=== PATIENT | female | born 1995 | race African-American/Black ===

== ENCOUNTER 2020-11-15 19:19 | Emergency (ER) | payer OTHER ==
[2020-11-15 20:45] LABS: HEMATOCRIT 40.3 % (36.0-47.0); HEMOGLOBIN 13.6 g/dl (12.0-15.5); MEAN CORPUSCULAR HGB CONC 33.7 g/dl (32.0-36.5); MEAN CORPUSCULAR VOLUME 83.1 fl (80.0-96.0); PLATELET COUNT, AUTOMATED 381 10^3/uL (150-450); RED BLOOD COUNT 4.85 10^6/uL (4.00-5.40); WHITE BLOOD COUNT 5.6 10^3/uL (4.0-10.0)
[2020-11-15 21:03] LABS: HCG, SERUM QUALITATIVE NEGATIVE (NEGATIVE)
[2020-11-15 21:10] LABS: ACETAMINOPHEN LEVEL < 2.0 UG/ML (10.0-30.0); ALBUMIN 3.7 GM/DL (3.2-5.2); ALT/SGPT 27 U/L (12-78); BILIRUBIN,DIRECT 0.1 MG/DL (0.0-0.2); BILIRUBIN,TOTAL 0.3 MG/DL (0.2-1.0); BLOOD UREA NITROGEN 11 MG/DL (7-18); CALCIUM LEVEL 8.8 MG/DL (8.5-10.1); CARBON DIOXIDE LEVEL 24 MEQ/L (21-32); CHLORIDE LEVEL 109 MEQ/L (98-107); CREATININE FOR GFR 0.74 MG/DL (0.55-1.30); ETHYL ALCOHOL (ETHANOL) 0.047 % (0.000-0.010); GLOMERULAR FILTRATION RATE > 60.0 (>60); GLUCOSE, FASTING 88 MG/DL (70-100); POTASSIUM SERUM 4.1 MEQ/L (3.5-5.1); SALICYLATE LEVEL < 1.7 MG/DL (5.0-30.0); SODIUM LEVEL 142 MEQ/L (136-145); THYROID STIMULATING HORMONE 0.558 uIU/ML (0.358-3.740); TOTAL PROTEIN 7.4 GM/DL (6.4-8.2)
[2020-11-16 00:24] LABS: AMPHETAMINES LEVEL URINE NEGATIVE (NEGATIVE); BARBITURATES URINE NEGATIVE (NEGATIVE); BENZODIAZEPINES URINE NEGATIVE (NEGATIVE); CANNABINOIDS URINE NEGATIVE (NEGATIVE); COCAINE METABOLITE URINE NEGATIVE (NEGATIVE); METHADONE URINE NEGATIVE (NEGATIVE); OPIATES URINE NEGATIVE (NEGATIVE); PHENCYCLIDINE URINE NEGATIVE (NEGATIVE)
[2020-11-16 04:08] LABS: RSV AMPLIFICATION NEGATIVE (NEGATIVE)
[2020-11-16 08:54] VITALS: BP 115/59
--- NOTE | 2020-11-16 21:27 | ECGEPIP ---
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
== END 2020-11-16 08:58 ==
LOC: M ED 19:19
DX: F32.9 Major depressive disorder, single episode, unspecified (principal); R45.851 Suicidal ideations; R00.1 Bradycardia, unspecified

== ENCOUNTER 2020-12-26 12:09 | Inpatient (IN) | payer OTHER ==
[~2020-12-26] VITALS: Ht 162.6 cm; Wt 57.2 kg
[2020-12-26] MEDS ORDERED: NS 1,000 ML IV SCH ×2 (12:20→12:30)
[2020-12-26] MEDS ORDERED: PRAZ2CAP (12:38)
[2020-12-26] MEDS ORDERED: TRAZ-252 (12:38)
[2020-12-26] MEDS ORDERED: SERT50TA29 (12:38)
[2020-12-26 12:39] LABS: BASO # 0.1 10^3/uL (0.0-0.2); BASO % 1.4 % (0.0-1.0); EOS % 0.9 % (0.0-3.0); HEMATOCRIT 40.3 % (36.0-47.0); HEMOGLOBIN 13.4 g/dl (12.0-15.5); LYMPH # 1.1 10^3/uL (1.5-5.0); LYMPH % 31.4 % (24.0-44.0); MEAN CORPUSCULAR HGB CONC 33.3 g/dl (32.0-36.5); MEAN CORPUSCULAR VOLUME 84.3 fl (80.0-96.0); MONO # 0.4 10^3/uL (0.0-0.8); MONO % 11.2 % (2.0-8.0); NEUTROPHILS # 1.9 10^3/uL (1.5-8.5); NEUTROPHILS % 54.8 % (36.0-66.0); PLATELET COUNT, AUTOMATED 285 10^3/uL (150-450); RED BLOOD COUNT 4.78 10^6/uL (4.00-5.40); WHITE BLOOD COUNT 3.5 10^3/uL (4.0-10.0)
[2020-12-26 12:56] LABS: HCG, SERUM QUALITATIVE NEGATIVE (NEGATIVE)
[2020-12-26 13:09] LABS: ACETAMINOPHEN LEVEL < 2.0 UG/ML (10.0-30.0); ALT/SGPT 28 U/L (12-78); BILIRUBIN,DIRECT 0.2 MG/DL (0.0-0.2); BILIRUBIN,TOTAL 0.6 MG/DL (0.2-1.0); BLOOD UREA NITROGEN 11 MG/DL (7-18); CALCIUM LEVEL 9.3 MG/DL (8.5-10.1); CARBON DIOXIDE LEVEL 28 MEQ/L (21-32); CHLORIDE LEVEL 106 MEQ/L (98-107); CPK CREATINE PHOSPHOKINASE 163 U/L (26-192); CREATININE FOR GFR 0.69 MG/DL (0.55-1.30); ETHYL ALCOHOL (ETHANOL) 0.003 % (0.000-0.010); GLOMERULAR FILTRATION RATE > 60.0 (>60); GLUCOSE, FASTING 94 MG/DL (70-100); POTASSIUM SERUM 3.8 MEQ/L (3.5-5.1); SALICYLATE LEVEL < 1.7 MG/DL (5.0-30.0); SODIUM LEVEL 139 MEQ/L (136-145); TOTAL PROTEIN 7.7 GM/DL (6.4-8.2)
[2020-12-26 17:53] LABS: AMPHETAMINES LEVEL URINE NEGATIVE (NEGATIVE); BARBITURATES URINE NEGATIVE (NEGATIVE); BENZODIAZEPINES URINE NEGATIVE (NEGATIVE); CANNABINOIDS URINE NEGATIVE (NEGATIVE); COCAINE METABOLITE URINE NEGATIVE (NEGATIVE); METHADONE URINE NEGATIVE (NEGATIVE); OPIATES URINE NEGATIVE (NEGATIVE); PHENCYCLIDINE URINE NEGATIVE (NEGATIVE)
[2020-12-26 19:43] LABS: RSV AMPLIFICATION NEGATIVE (NEGATIVE)
[2020-12-26] MEDS ORDERED: VITMTA PO (20:21)
[2020-12-26] MEDS ORDERED: SERT50TA29 PO (20:21)
[2020-12-26] MEDS ORDERED: TRAZ-186 PO (20:21)
[2020-12-26] MEDS ORDERED: GINK60CA2 PO (20:21)
[2020-12-26] MEDS ORDERED: FISH1000 PO (20:21)
[2020-12-26] MEDS ORDERED: PRAZ2CAP PO (20:21)
[2020-12-26] MEDS ORDERED: HOME MED LIST COMPLETE! XX SCH (20:25)
[2020-12-26] MEDS ORDERED: hydrOXYzine 50 MG TAB PO PRN (20:40)
[2020-12-26] MEDS ORDERED: MOM 30ML SUSPENSION UDC PO PRN (20:40)
[2020-12-26] MEDS ORDERED: traZODone 50 MG TAB PO PRN (20:40)
[2020-12-26] MEDS ORDERED: OLANZapine 5 MG TAB PO PRN (20:40)
[2020-12-26] MEDS ORDERED: ACETAMINOPHEN TAB 650MG DOSE (2X325MG) PO PRN (20:40)
[2020-12-26] MEDS ORDERED: MAALOX 30 ML SUSP *UDC PO PRN (20:40)
[2020-12-26 22:22] VITALS: BP 90/54
--- NOTE | 2020-12-27 04:09 | MHIPNPDOC ---
[facility] Progress Note Progress Note DATE OF SERVICE: 12/27/20 Communicated with PSA patient is to be admitted. Patient presents with intentional overdose and suicidal ideation. Last visit in October. Vital Signs Vital Signs Date Time Temp Pulse Resp B/P (MAP) Pulse Ox O2 Delivery O2 Flow Rate FiO2 12/26/20 22:22 97.7 68 16 90/54 (66) 100 Room Air Laboratory Data 24H Labs Laboratory Tests 2 12/26/20 12:18: Immature Granulocyte % (Auto) 0.3, Neutrophils (%) (Auto) 54.8, Lymphocytes (%) (Auto) 31.4, Monocytes (%) (Auto) 11.2H, Eosinophils (%) (Auto) 0.9, Basophils (%) (Auto) 1.4H, Neutrophils # (Auto) 1.9, Lymphocytes # (Auto) 1.1L, Monocytes # (Auto) 0.4, Eosinophils # (Auto) 0.0, Basophils # (Auto) 0.1, Nucleated Red Blood Cells % (auto) 0.0 12/26/20 12:19: Anion Gap 5L, Glomerular Filtration Rate > 60.0, Calcium Level 9.3, Total B ilirubin 0.6, Direct Bilirubin 0.2, Aspartate Amino Transf (AST/SGOT) 12, Alanine Aminotransferase (ALT/SGPT) 28, Alkaline Phosphatase 50, Total Creatine Kinase 163, Total Protein 7.7, Albumin 4.0, Albumin/Globulin Ratio 1.1L, Thyroid Stimulating Hormone (TSH) 1.330, Human Chorionic Gonadotropin, Qual NEGATIVE, Salicylates Level < 1.7L, Acetaminophen Level < 2.0L, Ethyl Alcohol Level 0.003 12/26/20 16:50: Urine Opiates Screen NEGATIVE, Urine Methadone Screen NEGATIVE, Urine B arbiturates Screen NEGATIVE, Urine Phencyclidine Screen NEGATIVE, Urine Amphetamines Screen NEGATIVE, Urine Benzodiazepines Screen NEGATIVE, Urine Cocaine Metabolite Screen NEGATIVE, Urine Cannabinoids Screen NEGATIVE 12/26/20 18:44: Coronavirus (COVID-19)(PCR) NEGATIVE, Influenza Type A (RT-PCR) NEGATIVE, Influenza Type B (RT-PCR) NEGATIVE, Respiratory Syncytial Virus (PCR) NEGATIVE CBC/BMP Laboratory Tests 12/26/20 12:18 12/26/20 12:19 Current Medications Current Medications Medications (Trade) Dose Ordered Sig/Aubree Route PRN Reason Start Time Stop Time Status Last Admin Dose Admin Acetaminophen (Tylenol Tab) 650 mg Q6HP PRN PO HEADACHE or MILD DISCOMFORT 12/26/20 20:40 Al Hydrox/Mg Hydrox/Simethicone (Mylanta) 30 ml Q4HP PRN PO HEARTBURN/INDIGESTION 12/26/20 20:40 Home Med (Home Med List Complete!) ASDIRECTED XX 12/26/20 20:25 12/26/20 20:26 DC Hydroxyzine HCl (Atarax) 50 mg Q6HP PRN PO ANXIETY/AGITATION 12/26/20 20:40 Magnesium Hydroxide (Milk Of Magnesia) 30 ml DAILYPRN PRN PO CONSTIPATION 12/26/20 20:40 Olanzapine (ZyPREXA) 5 mg Q6HP PRN PO ANXIETY/AGITATION 12/26/20 20:40 Sodium Chloride 1,000 ml @ 100 mls/hr Q10H IV 12/26/20 12:20 12/26/20 22:24 DC 12/26/20 12:30 Sodium Chloride 1,000 ml @ 100 mls/hr Q10H IV 12/26/20 12:30 12/26/20 22:24 DC Trazodone HCl (Desyrel) 50 mg QHSP PRN PO INSOMNIA 12/26/20 20:40 Cancel Allergies Coded Allergies: No Known Allergies (Unverified , 11/15/20) SILAS RUIZ MD Dec 27, 2020 04:09
[2020-12-27 07:40] VITALS: BP 93/60
--- NOTE | 2020-12-27 11:34 | ECGEPIP ---
[facility] - ED Test Date: 2020-12-26 Pat Name: EVANGELINA CRISOSTOMO Department: Room: - Gender: Female [employer]: LR : 1995 Requested By: Nga Acharya Order Number: [id number] Reading MD: Nga Acharya Measurements Intervals [place] Rate: 70 P: 28 [place]: 142 QRS: 77 QRSD: 66 T: 41 QT: 416 QTc: 449 Interpretive Statements Normal sinus rhythm with sinus arrhythmia NSTTW abnormalities increased rate 11/16/20 Electronically Signed on 12-27-2020 11:33:40 EDT by Nga Acharya
--- NOTE | 2020-12-27 11:38 | ECGEPIP ---
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
--- NOTE | 2020-12-27 12:22 | HPEPDOC ---
[facility] Medical History & Physical Date of Admission Dec 26, 2020 Date of Service: Dec 27, 2020 History and Physical CHIEF COMPLAINT: Suicidal ideation HISTORY OF PRESENT ILLNESS: 25-year-old female was brought in by EMS after an attempted intentional overdose. Patient states she tried to overdose on her trazodone, and took approximately thirty 50 mg tablets. She states she vomited a few times after this ingestion. On examination she denies chest pain, headaches, abdominal pain, nausea, vomiting, diarrhea, changes in vision. PAST MEDICAL HISTORY: Denies PAST SURGICAL HISTORY: Denies SOCIAL HISTORY: Not , has a girlfriend, no children. FAMILY HISTORY: Father: Reviewed and noncontributory Mother: Reviewed and noncontributory ALLERGIES: Please see below. REVIEW OF SYSTEMS: Negative except as per HPI HOME MEDICATIONS: Please see below. PHYSICAL EXAMINATION: Vital Signs: reviewed and within normal limits General: NAD, sitting comfortably in chair HEENT: NC/AT, EOMI Neck: supple, no masses Chest: lungs CTA B/L Heart: +S1S2, RRR Abd: soft, NT, ND, +BS Ext: no edema Skin: no rashes MSK: full ROM at large joints Neuro: no gross focal deficits Psych: AAOx3 LABORATORY DATA: See below. MICROBIOLOGY: Please see below. A/P: 25-year-old female with no past medical history admitted for suicidal ideation with intentional trazodone overdose. #Suicidal ideation -Follow as per primary teampsychiatry #History of alcohol abuse -Patient not able to quantify, however states that she quit drinking in September 2020 #Nicotine abuse -Patient not interested in nicotine replacement therapy Thank you for this consultation. Please reconsult as needed. Vital Signs Vital Signs Date Time Temp Pulse Resp B/P (MAP) Pulse Ox O2 Delivery O2 Flow Rate FiO2 12/27/20 08:26 Room Air 12/27/20 07:40 99.2 58 15 93/60 (71) 99 Laboratory Data Labs 24H Laboratory Tests 2 12/26/20 12:18: Immature Granulocyte % (Auto) 0.3, Neutrophils (%) (Auto) 54.8, Lymphocytes (%) (Auto) 31.4, Monocytes (%) (Auto) 11.2H, Eosinophils (%) (Auto) 0.9, Basophils (%) (Auto) 1.4H, Neutrophils # (Auto) 1.9, Lymphocytes # (Auto) 1.1L, Monocytes # (Auto) 0.4, Eosinophils # (Auto) 0.0, Basophils # (Auto) 0.1, Nucleated Red Blood Cells % (auto) 0.0 12/26/20 12:19: Anion Gap 5L, Glomerular Filtration Rate > 60.0, Calcium Level 9.3, Total Bilirubin 0.6, Direct Bilirubin 0.2, Aspartate Amino Transf (AST/SGOT) 12, Alanine Aminotransferase (ALT/SGPT) 28, Alkaline Phosphatase 50, Total Creatine Kinase 163, Total Protein 7.7, Albumin 4.0, Albumin/Globulin Ratio 1.1L, Thyroid Stimulating Hormone (TSH) 1.330, Human Chorionic Gonadotropin, Qual NEGATIVE, Salicylates Level < 1.7L, Acetaminophen Level < 2.0L, Ethyl Alcohol Level 0.003 12/26/20 16:50: Urine Opiates Screen NEGATIVE, Urine Methadone Screen NEGATIVE, Urine Barbiturates Screen NEGATIVE, Urine Phencyclidine Screen NEGATIVE, Urine Amphetamines Screen NEGATIVE, Urine Benzodiazepines Screen NEGATIVE, Urine Cocaine Metabolite Screen NEGATIVE, Urine Cannabinoids Screen NEGATIVE 12/26/20 18:44: Coronavirus (COVID-19)(PCR) NEGATIVE, Influenza Type A (RT-PCR) NEGATIVE, Influenza Type B (RT-PCR) NEGATIVE, Respiratory Syncytial Virus (PCR) NEGATIVE CBC/BMP Laboratory Tests 12/26/20 12:18 12/26/20 12:19 Home Medications Scheduled Ginkgo Biloba (Ginkgo Biloba) 60 Mg Capsule, 120 MG PO DAILY Multivitamins (Thera M Plus Tablet) 1 Each Tablet, 2 TAB PO DAILY [place]-3 Fatty Acids/Fish Oil (Fish Oil 1,000 mg Capsule) 1 Each Capsule, 1,000 MG PO DAILY Prazosin Hcl (Prazosin HCl) 2 Mg Capsule, 2 MG PO QHS Sertraline HCl (Sertraline HCl) 50 Mg Tablet, 50 MG PO DAILY Trazodone HCl (Trazodone HCl) 50 Mg Tablet, 100 MG PO QHS Allergies Coded Allergies: No Known Allergies (Unverified , 11/15/20) A-FIB/CHADSVASC A-FIB History Current/History of A-Fib/PAF?: No PREETHI DORAN MD Dec 27, 2020 12:22
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
[2020-12-27 16:04] VITALS: BP 103/62
[2020-12-27] MEDS: NICOTINE POLACRILEX 2 MG GUM PO PRN (19:18)
[2020-12-28 06:14] VITALS: BP 109/57
[2020-12-28] MEDS: SERTRALINE HCL 50 MG TAB PO SCH (09:38)
[2020-12-28] MEDS: NICOTINE POLACRILEX 2 MG GUM PO PRN ×2 (15:58→20:11)
[2020-12-28 16:06] VITALS: BP 119/72
[2020-12-29 06:12] VITALS: BP 108/56
[2020-12-29] MEDS: SERTRALINE HCL 50 MG TAB PO SCH (09:24)
[2020-12-29] MEDS: NICOTINE POLACRILEX 2 MG GUM PO PRN (09:24)
--- NOTE | 2020-12-29 10:53 | MHIPNPDOC ---
[facility] Progress Note Progress Note DATE OF SERVICE: 12/29/20 This dictation is for 12/28/2020. 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 Patient reportedly took 30 tablets of trazodone, felt uncomfortable, went to the therapist, and therapist sent her to the emergency room for evaluation. This is her second psychiatric hospitalization. She has been diagnosed with depressive disorder. Patient used to have significant alcohol use problem also. Currently, she has been sober. Complains of decreased sleep, poor appetite, low energy, feeling hopeless. Denies any history of manic episodes. Denies any history of psychosis. Denies hallucinations or delusions. Complains of anxiety, which is vague. She thinks she is a worrier. Her stress is mostly work-related. She reports that she is not treated well by her superiors. She thinks that she has been targeted. Interval: Her Zoloft was increased to 50 mg reported no side effect of the medication. However still depressed Mental status examination: Casually dressed in hospital attire made good eye contact psychomotor activity is normal Speech rate rhythm and volume are good mood is mildly depressed, affect is anxious, denied any suicidal homicidal ideas, Insight and judgment are fair, denied any auditory visual hallucinations, denied any suicidal homicidal ideas. Diagnosis: Depressive disorder unspecified Assessment and plan: Patient is tolerating the medication well will monitor her Estimated length of stay 3 to 4 days Time spent is 25 minutes Vital Signs Vital Signs Date Time Temp Pulse Resp B/P (MAP) Pulse Ox O2 Delivery O2 Flow Rate FiO2 12/29/20 07:52 Room Air 12/29/20 06:12 97.2 75 16 108/56 (73) 100 Current Medications Current Medications Medications (Trade) Dose Ordered Sig/Aubree Route PRN Reason Start Time Stop Time Status Last Admin Dose Admin Acetaminophen (Tylenol Tab) 650 mg Q6HP PRN PO HEADACHE or MILD DISCOMFORT 12/26/20 20:40 Al Hydrox/Mg Hydrox/Simethicone (Mylanta) 30 ml Q4HP PRN PO HEARTBURN/INDIGESTION 12/26/20 20:40 Home Med (Home Med List Complete!) ASDIRECTED XX 12/26/20 20:25 12/26/20 20:26 DC Hydroxyzine HCl (Atarax) 50 mg Q6HP PRN PO ANXIETY/AGITATION 12/26/20 20:40 Magnesium Hydroxide (Milk Of Magnesia) 30 ml DAILYPRN PRN PO CONSTIPATION 12/26/20 20:40 Nicotine (Nicorette) 2 mg Q4HP PRN PO NICOTINE WITHDRAWAL 12/27/20 18:45 12/29/20 09:24 Olanzapine (ZyPREXA) 5 mg Q6HP PRN PO ANXIETY/AGITATION 12/26/20 20:40 Sertraline HCl (Zoloft) 50 mg QAM PO 12/28/20 09:00 12/29/20 09:24 Sodium Chloride 1,000 ml @ 100 mls/hr Q10H IV 12/26/20 12:20 12/26/20 22:24 DC 12/26/20 12:30 Sodium Chloride 1,000 ml @ 100 mls/hr Q10H IV 12/26/20 12:30 12/26/20 22:24 DC Trazodone HCl (Desyrel) 50 mg QHSP PRN PO INSOMNIA 12/26/20 20:40 Cancel Allergies Coded Allergies: No Known Allergies (Unverified , 11/15/20) CONNOR ROBERSON MD Dec 29, 2020 10:53
--- NOTE | 2020-12-29 12:04 | MHIPNPDOC ---
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 Patient reportedly took 30 tablets of trazodone, felt uncomfortable, went to the therapist, and therapist sent her to the emergency room for evaluation. This is her second psychiatric hospitalization. She has been diagnosed with depressive disorder. Patient used to have significant alcohol use problem also. Currently, she has been sober. Complains of decreased sleep, poor appetite, low energy, feeling hopeless. Denies any history of manic episodes. Denies any history of psychosis. Denies hallucinations or delusions. Complains of anxiety, which is vague. She thinks she is a worrier. Her stress is mostly work-related. She reports that she is not treated well by her superiors. She thinks that she has been targeted. Interval: Her Zoloft was increased to 50 mg reported no side effect of the medication. However still depressed Mental status examination: Casually dressed in hospital attire made good eye contact psychomotor activity is normal Speech rate rhythm and volume are good mood euthymic, affect is anxious, denied any suicidal homicidal ideas, Insight and judgment are fair, denied any auditory visual hallucinations, denied any suicidal homicidal ideas. Diagnosis: Depressive disorder unspecified Assessment and plan: Patient is tolerating the medication well will monitor her Estimated length of stay 3 to 4 days Time spent is 25 minutes Vital Signs Vital Signs Date Time Temp Pulse Resp B/P (MAP) Pulse Ox O2 Delivery O2 Flow Rate FiO2 12/29/20 07:52 Room Air 12/29/20 06:12 97.2 75 16 108/56 (73) 100 Current Medications Current Medications Medications (Trade) Dose Ordered Sig/Aubree Route PRN Reason Start Time Stop Time Status Last Admin Dose Admin Acetaminophen (Tylenol Tab) 650 mg Q6HP PRN PO HEADACHE or MILD DISCOMFORT 12/26/20 20:40 Al Hydrox/Mg Hydrox/Simethicone (Mylanta) 30 ml Q4HP PRN PO HEARTBURN/INDIGESTION 12/26/20 20:40 Home Med (Home Med List Complete!) ASDIRECTED XX 12/26/20 20:25 12/26/20 20:26 DC Hydroxyzine HCl (Atarax) 50 mg Q6HP PRN PO ANXIETY/AGITATION 12/26/20 20:40 Magnesium Hydroxide (Milk Of Magnesia) 30 ml DAILYPRN PRN PO CONSTIPATION 12/26/20 20:40 Nicotine (Nicorette) 2 mg Q4HP PRN PO NICOTINE WITHDRAWAL 12/27/20 18:45 12/29/20 09:24 Olanzapine (ZyPREXA) 5 mg Q6HP PRN PO ANXIETY/AGITATION 12/26/20 20:40 Sertraline HCl (Zoloft) 50 mg QAM PO 12/28/20 09:00 12/29/20 09:24 Sodium Chloride 1,000 ml @ 100 mls/hr Q10H IV 12/26/20 12:20 12/26/20 22:24 DC 12/26/20 12:30 Sodium Chloride 1,000 ml @ 100 mls/hr Q10H IV 12/26/20 12:30 12/26/20 22:24 DC Trazodone HCl (Desyrel) 50 mg QHSP PRN PO INSOMNIA 12/26/20 20:40 Cancel Allergies Coded Allergies: No Known Allergies (Unverified , 11/15/20) CONNOR ROBERSON MD Dec 29, 2020 12:04
[2020-12-29 16:38] VITALS: BP 102/57
[2020-12-30 06:20] VITALS: BP 103/51
[2020-12-30] MEDS: SERTRALINE HCL 50 MG TAB PO SCH (09:29)
--- NOTE | 2020-12-30 10:22 | MHIPNPDOC ---
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 Patient reportedly took 30 tablets of trazodone, felt uncomfortable, went to the therapist, and therapist sent her to the emergency room for evaluation. This is her second psychiatric hospitalization. She has been diagnosed with depressive disorder. Patient used to have significant alcohol use problem also. Currently, she has been sober. Complains of decreased sleep, poor appetite, low energy, feeling hopeless. Denies any history of manic episodes. Denies any history of psychosis. Denies hallucinations or delusions. Complains of anxiety, which is vague. She thinks she is a worrier. Her stress is mostly work-related. She reports that she is not treated well by her superiors. She thinks that she has been targeted. Interval: Her Zoloft was increased to 50 mg reported no side effect of the medication. However still depressed Mental status examination: Casually dressed in hospital attire made good eye contact psychomotor activity is normal Speech rate rhythm and volume are good mood euthymic, affect is anxious, denied any suicidal homicidal ideas, Insight and judgment are fair, denied any auditory visual hallucinations, denied any suicidal homicidal ideas. Diagnosis: Depressive disorder unspecified Assessment and plan: Patient is tolerating the medication well will monitor her. Will go to House after the discharge. Estimated length of stay 3 to 4 days Time spent is 25 minutes Vital Signs Vital Signs Date Time Temp Pulse Resp B/P (MAP) Pulse Ox O2 Delivery O2 Flow Rate FiO2 12/30/20 06:20 98.6 61 18 103/51 (68) 99 Room Air Current Medications Current Medications Medications (Trade) Dose Ordered Sig/Aubree Route PRN Reason Start Time Stop Time Status Last Admin Dose Admin Acetaminophen (Tylenol Tab) 650 mg Q6HP PRN PO HEADACHE or MILD DISCOMFORT 12/26/20 20:40 Al Hydrox/Mg Hydrox/Simethicone (Mylanta) 30 ml Q4HP PRN PO HEARTBURN/INDIGESTION 12/26/20 20:40 Home Med (Home Med List Complete!) ASDIRECTED XX 12/26/20 20:25 12/26/20 20:26 DC Hydroxyzine HCl (Atarax) 50 mg Q6HP PRN PO ANXIETY/AGITATION 12/26/20 20:40 Magnesium Hydroxide (Milk Of Magnesia) 30 ml DAILYPRN PRN PO CONSTIPATION 12/26/20 20:40 Nicotine (Nicorette) 2 mg Q4HP PRN PO NICOTINE WITHDRAWAL 12/27/20 18:45 12/29/20 09:24 Olanzapine (ZyPREXA) 5 mg Q6HP PRN PO ANXIETY/AGITATION 12/26/20 20:40 Sertraline HCl (Zoloft) 50 mg QAM PO 12/28/20 09:00 12/30/20 09:29 Sodium Chloride 1,000 ml @ 100 mls/hr Q10H IV 12/26/20 12:20 12/26/20 22:24 DC 12/26/20 12:30 Sodium Chloride 1,000 ml @ 100 mls/hr Q10H IV 12/26/20 12:30 12/26/20 22:24 DC Trazodone HCl (Desyrel) 50 mg QHSP PRN PO INSOMNIA 12/26/20 20:40 Cancel Allergies Coded Allergies: No Known Allergies (Unverified , 11/15/20) CONNOR ROBERSON MD Dec 30, 2020 10:22
[2020-12-30 17:11] VITALS: BP 121/58
[2020-12-30] MEDS: NICOTINE POLACRILEX 2 MG GUM PO PRN (20:28)
[2020-12-31 06:57] VITALS: BP 111/55
[2020-12-31] MEDS ORDERED: TRAZ-186 PO (09:25)
[2020-12-31] MEDS: SERTRALINE HCL 50 MG TAB PO SCH (09:49)
--- NOTE | 2020-12-31 12:47 | MHDSPDOC ---
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 She stated. "I have a lot of anxiety." Patient reportedly took 30 tablets of trazodone, felt uncomfortable, went to the therapist, and therapist sent her to the emergency room for evaluation. This is her second psychiatric hospitalization. She has been diagnosed with depressive disorder. Patient used to haves a significant alcohol use problem also. Currently, she has been sober. Complains of decreased sleep, poor appetite, low energy, feeling hopeless. Denies any history of manic episodes. Denies any history of psychosis. Denies hallucinations or delusions. Complains of anxiety, which is vague. She thinks she is a worrier. Her stress is mostly work-related. VITAL SIGNS: See below. CONSULTANTS INVOLVED: See Medical H + P by Hospitalist TREATMENT AND PROGRESS ON THE UNIT: Patient was admitted to the [facility] on a 9.39 legal status was afforded the following treatment modalities: 1) Individual Therapy 2) Group Therapy 3) Medication Management 4) Milieu Therapy 5) Safe Environment HOSPITAL COURSE: Patient was admitted to [facility] on a 9.39 legal status. Started on her home medications with the exception of Trazodone and Prazosin, Pt found medications beneficial and tolerated them well. Mood, anxiety, and intrusive thoughts improved with treatment. Pt attended groups daily during stay. Pts symptoms improved with treatment. On day of discharge pt. denied depression, anxiety, insomnia, SI/HI, hallucinations, delusions. Pt was discharged home with follow-up at [facility]. She stated in today's interview that she felt better, feels the medication was effective. She reported that she was using Trazodone at home and although she had overdose on it, she reports that she rarely slept without the use of it. Trazodone was reinstated but at a reduced dosage. Pt felt safe for discharge. DISCHARGE ASSESSMENT: In today's interview, patient is alert and oriented, pt.s dress is appropriate. Hygiene and grooming is well-kempt. Smiles on approach and is pleasant and engaged in the interview. Denies depression and anxiety. Denies suicidal and homicidal ideation, planning or intent. Denies and is not observed with alice, psychotic symptoms of delusions, bizarre thinking, obsessions, paranoia, ruminations illogical thoughts, flight of ideas or having poor insight and judgement. Reinforced with patient need to abstain from alcohol and drugs. At discharge patient has normal mentation, declines further hospitalization on a voluntary status and meets criteria for discharge today. Patient encouraged to return to hospital if symptoms worsen or change and encouraged to call unit if he/she/they needs to speak to provider for questions regarding medications or care. 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 Speech: Is fluid, conversant, normal rate, tone and volume Language skills are intact Thought processes including: linear and goal oriented Thought content: denies depression and anxiety. Denies suicidal/homicidal ideation, planning or intent. Abstract reasoning, and computation: fair Description of associations: denies, none observed Description of abnormal or psychotic thoughts: denies, none observed. Judgment: fair Insight: fair Orientation: alert and oriented to person, place, time and situation Recent and remote memory: intact Attention span and concentration: good Language: expansive Fund of knowledge: average Mood: Euthymic Mood Affect: reactive Suicide Risk Assessment: 1) Does the patient wish to be ? No 2) Since your admission, have you had any actual thought of killing yourself? No 3) Since your admission, have you been thinking about how you might do this? No 4) Since your admission, have you had these thoughts and had some intention of acting on them? No 5) Since your admission, have you started to work out or worked out the details of how to kill yourself? No 5A) Do you intent to carry out this plan? No and NA 6) Have you ever done anything, started anything, or prepared to do anything with any intent to ? No 6A) How long since your admission did you do any of these? NA MEDICATIONS ON DISCHARGE: See Medication Reconciliation PLAN/FOLLOWUP ARRANGEMENTS: [facility] The amount of time spent in the coordination of care for this patient was approximately 25 minutes. ETOH/Disorder Med Rx ETOH/DRUG DISORDER RX: N/A Vital Signs/I&Os Vital Signs Date Time Temp Pulse Resp B/P (MAP) Pulse Ox O2 Delivery O2 Flow Rate FiO2 12/31/20 06:57 98.8 65 18 111/55 (73) 96 Room Air Medications Scheduled Multivitamins (Thera M Plus Tablet) 1 Each Tablet, 2 TAB PO DAILY, (Reported) Prazosin Hcl (Prazosin HCl) 2 Mg Capsule, 2 MG PO QHS, (Reported) Sertraline HCl (Sertraline HCl) 50 Mg Tablet, 50 MG PO DAILY, (Reported) Trazodone HCl (Trazodone HCl) 50 Mg Tablet, 50 MG PO QHS for Insomnia, #7 Allergies Coded Allergies: No Known Allergies (Unverified , 11/15/20) LANI STEWART NP Dec 31, 2020 12:39
== END 2020-12-31 14:41 | disposition home or self-care (01) | DRG 885 ==
LOC: EDBD 12:09 → M ED 12:09 → M ED INP 20:37 → M PSY 22:21
PROVIDERS: ADMIT Psychiatry & Neurology Psychiatry; ATTEND Psychiatry & Neurology Psychiatry
DX: F33.2 Major depressive disorder, recurrent severe without psychotic features (principal); R45.851 Suicidal ideations; Z62.810 Personal history of physical and sexual abuse in childhood; F17.210 Nicotine dependence, cigarettes, uncomplicated; F10.11 Alcohol abuse, in remission; Z20.822 Contact with and (suspected) exposure to COVID-19; Z79.899 Other long term (current) drug therapy

== ENCOUNTER → 2021-06-10 | Outpatient (REF) ==
[~2021-06-10] MED LIST: FISH1000 PO; GINK60CA2 PO; PRAZ2CAP; PRAZ2CAP PO; SERT50TA29; SERT50TA29 PO; TRAZ-186 PO; TRAZ-252; VITMTA PO
== END ==
LOC: M PLAIMG 08:09
PROVIDERS: ATTEND Internal Medicine
DX: R06.02 Shortness of breath (principal)

== ENCOUNTER 2021-09-21 16:00 | Emergency (ER) | payer OTHER ==
[~2021-09-21] VITALS: Ht 162.6 cm; Wt 54.2 kg
[2021-09-21 16:26] LABS: HEMATOCRIT 43.2 % (36.0-47.0); HEMOGLOBIN 14.6 g/dl (12.0-15.5); MEAN CORPUSCULAR HEMOGLOBIN 28.4 pg (27.0-33.0); MEAN CORPUSCULAR HGB CONC 33.8 g/dl (32.0-36.5); PLATELET COUNT, AUTOMATED 377 10^3/uL (150-450); RED BLOOD COUNT 5.14 10^6/uL (4.00-5.40); WHITE BLOOD COUNT 6.9 10^3/uL (4.0-10.0)
[2021-09-21 16:57] LABS: RSV AMPLIFICATION NEGATIVE (NEGATIVE)
[2021-09-21 17:07] LABS: ACETAMINOPHEN LEVEL < 2.0 UG/ML (10.0-30.0); ALBUMIN 3.8 GM/DL (3.2-5.2); ALT/SGPT 16 U/L (12-78); BILIRUBIN,DIRECT 0.2 MG/DL (0.0-0.2); BILIRUBIN,TOTAL 0.5 MG/DL (0.2-1.0); BLOOD UREA NITROGEN 11 MG/DL (7-18); CALCIUM LEVEL 9.5 MG/DL (8.5-10.1); CARBON DIOXIDE LEVEL 29 MEQ/L (21-32); CHLORIDE LEVEL 106 MEQ/L (98-107); CREATININE FOR GFR 0.73 MG/DL (0.55-1.30); ETHYL ALCOHOL (ETHANOL) < 0.003 % (0.000-0.010); GLOMERULAR FILTRATION RATE > 60.0 (>60); GLUCOSE, FASTING 84 MG/DL (70-100); POTASSIUM SERUM 3.6 MEQ/L (3.5-5.1); SALICYLATE LEVEL < 1.7 MG/DL (5.0-30.0); SODIUM LEVEL 141 MEQ/L (136-145); THYROID STIMULATING HORMONE 0.693 uIU/ML (0.358-3.740); TOTAL PROTEIN 7.8 GM/DL (6.4-8.2)
[2021-09-21 18:36] LABS: AMPHETAMINES LEVEL URINE NEGATIVE (NEGATIVE); BARBITURATES URINE NEGATIVE (NEGATIVE); BENZODIAZEPINES URINE NEGATIVE (NEGATIVE); CANNABINOIDS URINE POSITIVE (NEGATIVE); COCAINE METABOLITE URINE NEGATIVE (NEGATIVE); METHADONE URINE NEGATIVE (NEGATIVE); OPIATES URINE NEGATIVE (NEGATIVE); PHENCYCLIDINE URINE NEGATIVE (NEGATIVE)
[2021-09-21] MEDS ORDERED: HYDR-4570 PO (19:02)
[2021-09-21] MEDS ORDERED: ZOLO100T PO (19:02)
[2021-09-21] MEDS ORDERED: PRAZ1CAP PO (19:02)
[2021-09-21] MEDS ORDERED: HOME MED LIST COMPLETE! XX SCH (19:05)
[2021-09-22] MEDS ORDERED: NICOTINE 21MG/24HR 1 EA TRANSDERMAL TD ONE (09:25)
[2021-09-22] MEDS ORDERED: hydrOXYzine 25 MG TAB PO STA (09:25)
[2021-09-22] MEDS ORDERED: hydrOXYzine 25 MG TAB PO PRN (09:40)
[2021-09-22] MEDS ORDERED: PRAZOSIN 1 MG CAP PO SCH (21:00)
[2021-09-22 22:48] VITALS: BP 136/72
[2021-09-23 11:43] VITALS: BP 118/67
== END 2021-09-23 12:27 | disposition home or self-care (01) ==
LOC: M ED 16:00
DX: F43.0 Acute stress reaction (principal); F32.9 Major depressive disorder, single episode, unspecified; F43.10 Post-traumatic stress disorder, unspecified; F12.10 Cannabis abuse, uncomplicated

== ENCOUNTER 2022-01-19 16:58 | Emergency (ER) | payer OTHER ==
[~2022-01-19] VITALS: Ht 162.6 cm; Wt 54.5 kg
[~2022-01-19 16:58] MED LIST changes: +HYDR-4570 PO; +PRAZ1CAP PO; +ZOLO100T PO
[2022-01-19 18:31] LABS: HEMATOCRIT 39.3 % (36.0-47.0); HEMOGLOBIN 13.4 g/dl (12.0-15.5); MEAN CORPUSCULAR HEMOGLOBIN 28.5 pg (27.0-33.0); MEAN CORPUSCULAR HGB CONC 34.1 g/dl (32.0-36.5); MEAN CORPUSCULAR VOLUME 83.6 fl (80.0-96.0); PLATELET COUNT, AUTOMATED 322 10^3/uL (150-450)
[2022-01-19 18:55] LABS: AMPHETAMINES LEVEL URINE NEGATIVE (NEGATIVE); BARBITURATES URINE NEGATIVE (NEGATIVE); BENZODIAZEPINES URINE NEGATIVE (NEGATIVE); CANNABINOIDS URINE POSITIVE (NEGATIVE); COCAINE METABOLITE URINE NEGATIVE (NEGATIVE); METHADONE URINE NEGATIVE (NEGATIVE); OPIATES URINE NEGATIVE (NEGATIVE); PHENCYCLIDINE URINE NEGATIVE (NEGATIVE)
[2022-01-19 19:03] LABS: RSV AMPLIFICATION NEGATIVE (NEGATIVE)
[2022-01-19 19:07] LABS: ACETAMINOPHEN LEVEL < 2.0 UG/ML (10.0-30.0); ALT/SGPT 16 U/L (12-78); BILIRUBIN,DIRECT 0.2 MG/DL (0.0-0.2); BILIRUBIN,TOTAL 0.5 MG/DL (0.2-1.0); BLOOD UREA NITROGEN 13 MG/DL (7-18); CALCIUM LEVEL 9.2 MG/DL (8.5-10.1); CARBON DIOXIDE LEVEL 29 MEQ/L (21-32); CHLORIDE LEVEL 105 MEQ/L (98-107); CREATININE FOR GFR 0.71 MG/DL (0.55-1.30); ETHYL ALCOHOL (ETHANOL) < 0.003 % (0.000-0.010); GLOMERULAR FILTRATION RATE > 60.0 (>60); GLUCOSE, FASTING 81 MG/DL (70-100); POTASSIUM SERUM 3.8 MEQ/L (3.5-5.1); SALICYLATE LEVEL 3.2 MG/DL (5.0-30.0); SODIUM LEVEL 138 MEQ/L (136-145); THYROID STIMULATING HORMONE 0.987 uIU/ML (0.358-3.740); TOTAL PROTEIN 7.5 GM/DL (6.4-8.2)
[2022-01-19 20:31] VITALS: BP 122/65
== END 2022-01-19 20:36 | disposition home or self-care (01) ==
LOC: M ED 16:58
DX: F32.9 Major depressive disorder, single episode, unspecified (principal); R45.851 Suicidal ideations; F12.10 Cannabis abuse, uncomplicated

== ENCOUNTER 2022-01-28 11:07 | Inpatient (IN) | payer OTHER, SELFPAY ==
[~2022-01-28] VITALS: Ht 162.6 cm; Wt 54.5 kg
[~2022-01-28 11:07] MED LIST changes: +NICOTINE 21MG/24HR 1 EA TRANSDERMAL TD SCH
[2022-01-28 11:53] LABS: HEMATOCRIT 42.8 % (36.0-47.0); HEMOGLOBIN 14.6 g/dl (12.0-15.5); MEAN CORPUSCULAR HEMOGLOBIN 28.7 pg (27.0-33.0); MEAN CORPUSCULAR HGB CONC 34.1 g/dl (32.0-36.5); MEAN CORPUSCULAR VOLUME 84.3 fl (80.0-96.0); PLATELET COUNT, AUTOMATED 336 10^3/uL (150-450); RED BLOOD COUNT 5.08 10^6/uL (4.00-5.40); WHITE BLOOD COUNT 7.2 10^3/uL (4.0-10.0)
[2022-01-28 12:17] LABS: RSV AMPLIFICATION NEGATIVE (NEGATIVE)
[2022-01-28 12:31] LABS: HCG, SERUM QUALITATIVE NEGATIVE (NEGATIVE)
[2022-01-28 12:57] LABS: AMPHETAMINES LEVEL URINE NEGATIVE (NEGATIVE); BARBITURATES URINE NEGATIVE (NEGATIVE); BENZODIAZEPINES URINE NEGATIVE (NEGATIVE); CANNABINOIDS URINE POSITIVE (NEGATIVE); COCAINE METABOLITE URINE NEGATIVE (NEGATIVE); METHADONE URINE NEGATIVE (NEGATIVE); OPIATES URINE NEGATIVE (NEGATIVE); PHENCYCLIDINE URINE NEGATIVE (NEGATIVE)
[2022-01-28 13:03] LABS: ACETAMINOPHEN LEVEL < 2.0 UG/ML (10.0-30.0); ALBUMIN 4.1 GM/DL (3.2-5.2); ALT/SGPT 15 U/L (12-78); BILIRUBIN,DIRECT 0.2 MG/DL (0.0-0.2); BILIRUBIN,TOTAL 0.7 MG/DL (0.2-1.0); BLOOD UREA NITROGEN 14 MG/DL (7-18); CALCIUM LEVEL 9.2 MG/DL (8.5-10.1); CARBON DIOXIDE LEVEL 29 MEQ/L (21-32); CHLORIDE LEVEL 107 MEQ/L (98-107); CREATININE FOR GFR 0.85 MG/DL (0.55-1.30); GLOMERULAR FILTRATION RATE > 60.0 (>60); GLUCOSE, FASTING 86 MG/DL (70-100); SALICYLATE LEVEL 2.5 MG/DL (5.0-30.0); SODIUM LEVEL 140 MEQ/L (136-145); THYROID STIMULATING HORMONE 0.471 uIU/ML (0.358-3.740); TOTAL PROTEIN 7.7 GM/DL (6.4-8.2)
[2022-01-28 13:04] LABS: ETHYL ALCOHOL (ETHANOL) < 0.003 % (0.000-0.010)
[2022-01-28] MEDS ORDERED: MAALOX 30 ML SUSP *UDC PO PRN (16:20)
[2022-01-28] MEDS ORDERED: MOM 30ML SUSPENSION UDC PO PRN (16:20)
[2022-01-28] MEDS ORDERED: hydrOXYzine 50 MG TAB PO PRN (16:20)
[2022-01-28] MEDS ORDERED: traZODone 50 MG TAB PO PRN (16:20)
[2022-01-28 17:15] VITALS: BP 117/55
[2022-01-28] MEDS ORDERED: VITMTA PO (23:27)
[2022-01-28] MEDS ORDERED: HOME MED LIST COMPLETE! XX SCH (23:30)
[2022-01-29 06:45] VITALS: BP 134/55
[2022-01-29] MEDS: NICOTINE 21MG/24HR 1 EA TRANSDERMAL TD SCH (08:47)
[2022-01-29] MEDS ORDERED: NICOTINE 21MG/24HR 1 EA TRANSDERMAL TD SCH (09:00)
[2022-01-29 18:06] VITALS: BP 138/80
[2022-01-29] MEDS: MIRTAZAPINE 7.5MG PER 1/2 TABLET PO PRN (22:59)
[2022-01-30 06:45] VITALS: BP 154/79
[2022-01-30] MEDS: NICOTINE 21MG/24HR 1 EA TRANSDERMAL TD SCH (11:29)
[2022-01-30 18:10] VITALS: BP 125/85
[2022-01-30] MEDS: MIRTAZAPINE 7.5MG PER 1/2 TABLET PO PRN (23:03)
[2022-01-31 06:47] VITALS: BP 121/58
[2022-01-31] MEDS: IBUPROFEN 400MG TAB PO PRN ×2 (07:48→19:43)
[2022-01-31] MEDS: NICOTINE 21MG/24HR 1 EA TRANSDERMAL TD SCH (08:07)
[2022-01-31 18:23] VITALS: BP 134/88
[2022-01-31] MEDS: MIRTAZAPINE 7.5MG PER 1/2 TABLET PO PRN (21:34)
[2022-02-01 07:02] VITALS: BP 105/64
[2022-02-01] MEDS: NICOTINE 21MG/24HR 1 EA TRANSDERMAL TD SCH (09:00)
[2022-02-01 18:00] VITALS: BP 110/52
[2022-02-01] MEDS: MIRTAZAPINE 7.5MG PER 1/2 TABLET PO PRN (21:10)
[2022-02-02 07:08] VITALS: BP 97/59
[2022-02-02] MEDS: NICOTINE 21MG/24HR 1 EA TRANSDERMAL TD SCH (09:00)
[2022-02-02 16:20] VITALS: BP 101/58
[2022-02-02] MEDS: MIRTAZAPINE 7.5MG PER 1/2 TABLET PO PRN (19:48)
[2022-02-02] MEDS ORDERED: NICOTINE 21MG/24HR 1 EA TRANSDERMAL TD PRN (20:30)
[2022-02-03 06:40] VITALS: BP 103/63
[2022-02-03] MEDS ORDERED: MIRT-10 PO (09:21)
== END 2022-02-03 12:25 | disposition home or self-care (01) | DRG 885 ==
LOC: M ED 11:07 → EDBD 11:07 → M ED INP 16:19 → M PSY 17:13 → M ED 17:21 → M PSY 01-31 13:01
PROVIDERS: ADMIT Student in an Organized Health Care Education/Training Program; ATTEND Student in an Organized Health Care Education/Training Program
DX: F33.0 Major depressive disorder, recurrent, mild (principal); R45.851 Suicidal ideations; F41.1 Generalized anxiety disorder; F43.10 Post-traumatic stress disorder, unspecified; Z20.822 Contact with and (suspected) exposure to COVID-19; Z91.51 Personal history of suicidal behavior; Z62.810 Personal history of physical and sexual abuse in childhood; Z91.410 Personal history of adult physical and sexual abuse